=== PATIENT | female | born 1935 | race Caucasian/White ===

== ENCOUNTER 2020-03-01 16:26 | Inpatient (IN) | payer MEDICARE ==
[2020-03-01] MEDS ORDERED: Electrolyte Replacement Protoc 1 EACH EACH IVPB PRN (19:56)
[2020-03-01] MEDS ORDERED: Ondansetron PF 4 MG/2 ML Vial IVP PRN (19:56)
[2020-03-01] MEDS ORDERED: niCARdipine 25 MG in Sodium Chloride 0.9% 250 ML 250 ML IVPB PRN (19:56)
[2020-03-01] MEDS ORDERED: Mannitol 12.5 GM/50 ML SLOW IVP PRN (19:56)
[2020-03-01] MEDS ORDERED: Lorazepam 2 MG/ML VIAL SLOW IVP PRN (19:56)
[2020-03-01] MEDS ORDERED: Sodium Chloride 0.9% 1,000 ML IV SCH ×2 (20:00→20:30)
[2020-03-01] MEDS: niCARdipine 25 MG in Sodium Chloride 0.9% 250 ML 240 ML IVPB SCH (20:30)
[2020-03-01] MEDS: Famotidine/PF 20 mg/2ml Vial SLOW IVP SCH (20:45)
[2020-03-01] MEDS ORDERED: MANNITOL 20% IVPB PRN (20:46)
[2020-03-01] MEDS ORDERED: levETIRAcetam in NS 500 MG in Premix Bag 1 BAG IVPB SCH (21:00)
[2020-03-01] MEDS ORDERED: levETIRAcetam 500 MG in Sodium Chloride 0.9% 100 ML IVPB SCH (21:00)
--- NOTE | 2020-03-01 22:14 | PDOC.HHP ---
Hospitalist HPI - History of Present Illness Altered mental status History of Present Illness: 84-year-old woman with a history of coronary artery disease and hypertension on Eliquis for unclear reason was sent to [facility] due to altered mental status. Patient is reported to have had a seizure at home. She is reported to have fallen during the seizure episode. she had a negative seizure episode in the emergency department for which she was given Keppra and IV Ativan. CT head done in the emergency department demonstrated subdural, subarachnoid and possible parenchymal hemorrhage in the left frontal area of the brain. Neurosurgery was contacted, patient was given a dose of IV dexamethasone and transferred here for further management. She was also given IV Keppra, IV Zosyn, Kcentra to reverse the Eliquis and nicardipine drip in the emergency department. She was seen and evaluated in the CCU. She was unresponsive during my examination, noted right-sided weakness. No family member present to provide any history. History was taken from the ED chart. Her systolic blood pressure noted to be high between 160-180. Hospitalist ROS - Review of Systems ROS unobtainable: due to mental status - Medication Medications: Active Medications Generic Name Dose Route Start Last Admin Trade Name Freq PRN Reason Stop Dose Admin Famotidine 20 mg 03/01/20 21:00 03/01/20 20:45 Famotidine/Pf 20 Mg/2ml Vial SLOW IVP 20 mg 2100 CHRISTIANNE Administration Sodium Chloride 1,000 mls @ 75 mls/hr 03/01/20 20:00 03/01/20 20:44 Normal Saline 0.9% IV 1,000 mls INF CHRISTIANNE Administration Nicardipine HCl 25 mg/ Sodium 250 mls @ 0 mls/hr 03/01/20 20:00 03/01/20 20:30 Chloride IVPB 250 mls INF CHRISTIANNE Administration Protocol Titrate Sodium Chloride 10 ml 03/01/20 19:56 03/01/20 20:45 Flush - Normal Saline 10 Ml Syringe IVF 10 ml PRN PRN Administration Saline Flush Hospitalist History - Past Medical History Cardiac: reports: CAD, HTN Other Medical History: Unable to obtain full history due to altered mental status. - Past Surgical History Other Surgical History: Unable to obtain. - Family History Other Family History: Unable to obtain due to altered mental status. - Social History Smoking Status: Never smoker Alcohol: reports: None Living Situation: With Family - Exam General - other findings: Unresponsive Eye - other findings: Right pupil dilated compared to the left. Pupils reactive to light. Neck: supple, no JVD Heart: RRR (Tachycardic), no murmur, no gallops Respiratory: CTAB, no wheezes, no rales Gastrointestinal: soft, non-distended, normal bowel sounds Extremities: no cyanosis, no edema Skin: normal turgor, no rashes Neurological: facial droop (Right facial droop. Right-sided weakness. She withdraws the left extremities to pain and localizes touch with the left extremities.) Psychiatric - other findings: Unresponsive. Hospitalist Results - Labs Lab results: WBC 10.4, hemoglobin 15.3 platelet count 276. Sodium 140, potassium 4.4, chloride 103, CO2 23, BUN 12, creatinine 0.79. Glucose 155. UA suggest the presence of yeast. - EKG Interpretation EKG: Sinus rhythm with first-degree AV block, nonspecific intraventricular conduction delay. - Radiology Interpretation CT scan - head Status: report reviewed by me (Extra-axial hemorrhage along the left frontal convexity which may be both subdural and sub-arachnoid. Small amount of parenchymal hemorrhage is also a possibility. Slight midline shift to the right. Hypodensity in the left frontal lobe which could represent encephalomalacia or edema.) Hospitalist H&P A/P - Problem (1) Intracranial hemorrhage Code(s): I62.9 - NONTRAUMATIC INTRACRANIAL HEMORRHAGE, UNSPECIFIED Status: Acute (2) ICH (intracerebral hemorrhage) Code(s): I61.9 - NONTRAUMATIC INTRACEREBRAL HEMORRHAGE, UNSPECIFIED Status: Acute (3) Chronic anticoagulation Code(s): Z79.01 - NURSING HOME (CURRENT) USE OF ANTICOAGULANTS Status: Acute (4) Seizures Code(s): R56.9 - UNSPECIFIED CONVULSIONS Status: Acute (5) Malignant hypertension Code(s): I10 - ESSENTIAL (PRIMARY) HYPERTENSION Status: Acute (6) Fall Code(s): W19.XXXA - UNSPECIFIED FALL, INITIAL ENCOUNTER Status: Acute - Plan Plan: Patient admitted to the CCU. Case discussed with neurosurgery-Zak Waller. Patient seen and evaluated by neurosurgery. Status post Kcentra for Eliquis reversal. Started nicardipine drip for target systolic blood pressure less than 140. IV hydration with normal saline. Every 2 hours neurochecks. IV Keppra for seizures. Ativan IV as needed for breakthrough seizures. Obtain echocardiogram. Management of intracerebral bleed, intracranial pressure per neurosurgery. Repeat CT head per neurosurgery. Obtain urine culture. Monitor electrolytes and replete as needed. SCD for DVT prophylaxis. I am unable to discuss advanced care planning due to unresponsiveness and no family member available at her bedside.
[2020-03-02] MEDS ORDERED: Mannitol 12.5 GM/50 ML SLOW IVP SCH (00:30)
[2020-03-02] MEDS: Sodium Chloride 0.9% 1,000 ML IV SCH ×3 (00:36→21:15)
[2020-03-02] MEDS: niCARdipine 25 MG in Sodium Chloride 0.9% 250 ML 240 ML IVPB SCH ×4 (02:20→17:39)
[2020-03-02 05:20] LABS: Bacteria/HPF None Seen HPF (None Seen); Bilirubin Negative (Negative); Blood, Urine Negative (Negative); Clarity Clear (Clear); Glucose, Urine (Dipstick) Normal (Negative); Ketone, Urine Trace mg/dL (Negative); Leukocyte Negative Leu/uL (Negative); Nitrite Negative (Negative); Protein, Urine (Dipstick) Negative (Neg-Trace); RBC/HPF 0-3 HPF (0-3); Specific Gravity, Urine 1.033 (1.002-1.036); Squamous Epithelial None Seen HPF (0-3); Urobilinogen Normal mg/dL (Less than 2); WBC/HPF 0-3 HPF (0-3)
--- NOTE | 2020-03-02 05:26 | CON ---
DATE OF CONSULTATION: HISTORY OF PRESENT ILLNESS: Ms. Amato is an 84-year-old woman, a resident of an assisted living facility who was found down on the floor this morning. She was taken to the [facility] where CT scan reveals she had what appears to be subacute left frontal hemorrhage, likely traumatic in origin given a mix of hemorrhage types, which include subdural, intraparenchymal, and subarachnoid. The patient is on Eliquis. She was transferred to [facility] and was admitted to the hospital service in the ICU. Initially, she was unresponsive. As I am seeing her at bedside, the patient is obtunded, will not open her eyes, but does localize pain inconsistently. She does withdraw very briskly in all extremities except the left upper. She mutters a sound one time, but not again and again at no point does she open her eyes. Her right pupil measures roughly 4 mm, left is 3 mm, both are briskly reactive to light. She is protecting her airway currently. Systolic pressures have been titrated down under 140. Initially, neuroleptic medications were ordered, but we will discontinue these. I do not see any need for ICP management at the moment. From assessment, it is likely traumatic, multi-origin intracerebral hemorrhage including traumatic subarachnoid and small subdural. The patient did receive hemostatic agents in the form for Kcentra and vitamin K while in the ED at [place]. There is no need to administer any more. We will repeat CT scan tonight around 10 to stay abreast of the evolution of this hemorrhage as it relates to her anticoagulation status. I feel that this could represent stable hemorrhage. Given location and current condition of the patient's neurologic examination, we will monitor closely. She will require q.1 h. neuro checks, head of bed elevated as previously discussed. We will follow up in the morning. Job ID: [id number]
--- NOTE | 2020-03-02 07:44 | CT ---
CT OF BRAI PERFORMED WITHOUT CONTRAST ENHANCEMENT: HISTORY: Followup intracranial hemorrhage. COMPARISON: Earlier exam of the same day. FINDINGS: There is a definite worsening in the left frontal intraparenchymal hemorrhage now measuring greater t ramos 5 cm in diameter as compared to approximately 3.5 cm. More extensive subdural blood is present a nd subarachnoid blood is also seen. The subdural blood extends over the left frontal convexity. The re is subfalcine herniation. Shift of midline structures is now approximately 6 mm. Subarachnoid bl ood is now seen over the right sylvian fissure region. Associated white matter edema changes are als o present. IMPRESSION: Worsening intraparenchymal subdural and subarachnoid blood. Worsening shift of midline structures to the right. Findings telephoned to Nita Jacinto, the patient's nurse. CODE CR POS: HALEY
--- NOTE | 2020-03-02 07:47 | PRG ---
DATE OF SERVICE: 03/02/2020 I reviewed the note and evaluation is performed by Isiah Waller and agreed with his overall assessment. SUBJECTIVE: Ms. Amato is an 84-year-old female, who is a resident of an assisted living facility, who was found down. She presented to [facility], where she underwent initial evaluation in way of a CT scan, which showed evidence for what appeared to be traumatic subarachnoid hemorrhage and a left frontal contusion. Of note, she was on Eliquis. She was transferred to [facility] and she has had subsequent scan since that time, which showed worsening of her hemorrhage with associated significant mass effect involving the left frontal hemisphere. The plan from a neurosurgical perspective will be one of nonoperative management. We will continue to withhold her Eliquis and manage her blood pressures appropriately. We will judiciously use osmotic agents as needed for maximal medical management. I have updated the family. Job ID: [id number] MTDD
[2020-03-02 08:53] LABS: #Lymphocytes 0.7 thou/uL (1.20-3.40); #Monocytes 0.6 thou/uL (0.11-0.59); #Neutrophils 9.5 thou/uL (1.40-6.50); %Basophils 0.1 % (0.0-1.0); %Lymphocytes 6.4 % (21.0-51.0); %Monocytes 5.9 % (0.0-10.0); %Neutrophils 87.6 % (42.0-75.0); Hemoglobin 12.4 g/dL (12.0-16.0); Mean Corpuscular Hemoglobin 32.4 pg (27.0-31.0); Mean Corpuscular Volume 95.4 fL (78.0-98.0); Mean Platelet Volume 7.6 fL (7.4-10.4); Platelet Count 202 thou/uL (130-400); RBC Distribution Width 11.7 % (11.5-14.5); Red Blood Cell (RBC) Count 3.83 mill/uL (4.20-5.40); White Blood Cell (WBC) Count 10.9 thou/uL (4.8-10.8)
[2020-03-02 09:14] LABS: Anion Gap 9 mmol/L (10-20); BUN (Urea Nitrogen) 11 mg/dL (9.8-20.1); Calc. Creatinine Clearance 66 mL/min (70-130); Calcium 8.7 mg/dL (7.8-10.44); Carbon Dioxide 24 mmol/L (23-31); Chloride 106 mmol/L (98-107); Cholesterol 169 mg/dl (< 200 Desired); Estimated GFR-MDRD 85; Glucose 162 mg/dL (83-110); HDL Cholesterol 56 mg/dL (>60 Neg Risk); LDL Cholesterol, Calculated 102 mg/dL; Potassium 3.6 mmol/L (3.5-5.1); Sodium 135 mmol/L (136-145); Triglycerides 57 mg/dL (Less than 150)
--- NOTE | 2020-03-02 11:09 | PDOC.FMACP ---
Advance Care Planning - Problem (1) Palliative care encounter Status: Acute Code(s): Z51.5 - ENCOUNTER FOR PALLIATIVE CARE (2) Chronic anticoagulation Status: Acute Code(s): Z79.01 - MEDICAL DOCTOR MD (CURRENT) USE OF ANTICOAGULANTS (3) Fall Status: Acute Code(s): W19.XXXA - UNSPECIFIED FALL, INITIAL ENCOUNTER (4) ICH (intracerebral hemorrhage) Status: Acute Code(s): I61.9 - NONTRAUMATIC INTRACEREBRAL HEMORRHAGE, UNSPECIFIED (5) Intracranial hemorrhage Status: Acute Code(s): I62.9 - NONTRAUMATIC INTRACRANIAL HEMORRHAGE, UNSPECIFIED (6) Malignant hypertension Status: Acute Code(s): I10 - ESSENTIAL (PRIMARY) HYPERTENSION (7) Seizures Status: Acute Code(s): R56.9 - UNSPECIFIED CONVULSIONS - Note Participants: family, palliative care Summary: Introduced Advanced Care Planning to Mr Amato as Mrs Amato is not decisional. The diagnosis, prognosis and goals of care were discussed. Appropriate forms and documentation to accomplish the goals of care were discussed. Discussed poor prognosis and transition to DNAR. Mr Amato states they have two sons that reside in [place], one is on his way. He requested that discussion and completion of DNAR occur if possible after his son arrives. Discussed that although in the past Mrs Amato had a head injury/bleed and she did recover that this instance is very different. Revisited poor prognosis and continued decline since admission. The Palliative Care Team will be engaged to assist with completion of any outstanding forms that are needed. *Patient and spouse have been 63 years, met on the [employer] [place] [employer] when he was a student. Mr Amato relayed best "thing" about her is that she was a wonderful mother. Bernice Lopez educational interpreter to follow up and revisit Goal of Care and DNAR with patient and son. Time Spent (mins): 45
[2020-03-02] MEDS: levETIRAcetam in NS 500 MG in Premix Bag 1 BAG IVPB SCH (12:33)
[2020-03-02] MEDS: Metoprolol Tartrate 5 MG/5 ML VIAL IVP SCH ×3 (12:44→21:06)
--- NOTE | 2020-03-02 12:53 | CON ---
NEUROLOGY CONSULTATION DATE OF CONSULTATION: 03/02/2020 REASON FOR CONSULTATION: Altered mental status/intraparenchymal hemorrhage. HISTORY OF PRESENT ILLNESS: Ms. Amato is an 84-year-old female with history significant for coronary artery disease and hypertension, on Eliquis, presented to the [facility] with altered mental status. The patient is unable to provide the history, so history is obtained by review of the medical record. Per report, the patient had a seizure at home and she fell during the seizure episode. She was given Keppra in the emergency room and Ativan and head CT was done, which showed subdural, subarachnoid, and possible parenchymal hemorrhage in the left frontal area of the brain. Neurosurgery was contacted and the patient was given a dose of IV dexamethasone and transferred to [facility] for higher level of care. She was given Kcentra to reverse Eliquis and nicardipine drip was started in the emergency room. She was evaluated by the Neurosurgery and repeat head CT was done, which showed worsening of the hemorrhage with associated significant mass effect involving the left frontal hemisphere. Neurosurgery did not feel the need of surgical intervention and prognosis seems guarded at this point because of findings on imaging showed worsening midline shift. REVIEW OF SYSTEMS: Unobtainable due to patient mental status. PAST MEDICAL HISTORY: Hypertension, coronary artery disease. PAST SURGICAL HISTORY: Not significant. FAMILY HISTORY: Unable to obtain secondary to mental status. SOCIAL HISTORY: There is no documented history of smoking, alcohol, illegal drug use. , lives with her . ALLERGIES: NKDA PHYSICAL EXAMINATION: 134/60 88 18 GENERAL: Unresponsive. CVS: Regular rate and rhythm. CHEST: Clear. ABDOMEN: Soft. NECK: Supple. NEUROLOGIC: Mental status, the patient is unresponsive. She does not open eyes to verbal stimuli. She does not follow commands or maintain eye contact. Cranial nerves; right pupil 4 mm reactive to light. Left pupil 2 mm, round and sluggishly responsive to light. Corneals positive. Right facial droop. Motor; muscle tone is decreased in the right upper and lower extremity. Right hemiparesis. Spontaneous movement of the left upper and lower extremities seen. Withdrawals, minimal withdrawal of right upper and lower extremity. Withdrawals, left upper and lower extremities to pain. Cerebellar, unable to perform secondary to unresponsiveness. Gait deferred due to patient's safety reason. Active Medications Generic Name Dose Route Start Last Admin Trade Name Freq PRN Reason Stop Dose Admin Famotidine 20 mg 03/01/20 21:00 03/01/20 20:45 Famotidine/Pf 20 Mg/2ml Vial SLOW IVP 20 mg 2100 CHRISTIANNE Administration Sodium Chloride 1,000 mls @ 75 mls/hr 03/01/20 20:00 03/01/20 20:44 Normal Saline 0.9% IV 1,000 mls INF CHRISTIANNE Administration Nicardipine HCl 25 mg/ Sodium 250 mls @ 0 mls/hr 03/01/20 20:00 03/01/20 20:30 Chloride IVPB 250 mls INF CHRISTIANNE Administration Protocol Titrate Sodium Chloride 10 ml 03/01/20 19:56 03/01/20 20:45 Flush - Normal Saline 10 Ml Syringe IVF 10 ml PRN PRN Administration Saline Flush DATA REVIEWED: I reviewed the CT scan which showed extra-axial hemorrhage along the left frontal convexity, which may include both subdural and subarachnoid, small amount of parenchymal hemorrhage. There is also a possibility midline shift to the right and hypodensity in the left frontal lobe which could represent encephalomalacia or edema. ASSESSMENT AND PLAN: (1) Intracranial hemorrhage Code(s): I62.9 - NONTRAUMATIC INTRACRANIAL HEMORRHAGE, UNSPECIFIED Status: Acute (2) ICH (intracerebral hemorrhage) Code(s): I61.9 - NONTRAUMATIC INTRACEREBRAL HEMORRHAGE, UNSPECIFIED Status: Acute (3) Chronic anticoagulation Code(s): Z79.01 - [employer] THRESHING (CURRENT) USE OF ANTICOAGULANTS Status: Acute (4) Seizures Code(s): R56.9 - UNSPECIFIED CONVULSIONS Status: Acute (5) Malignant hypertension Code(s): I10 - ESSENTIAL (PRIMARY) HYPERTENSION Status: Acute (6) Fall Code(s): W19.XXXA - UNSPECIFIED FALL, INITIAL ENCOUNTER Status: Acute Ms. Amato is an 84-year-old female, who was consulted for intracranial hemorrhage Neurosurgery is on board and does not feel the need of surgical intervention. Continue Keppra for seizure prophylaxis. Ativan 2 mg IV for seizure greater than 2 minutes. Observe seizure precautions. Neuro checks every 2 hours. Repeat noncontrast head CT if the condition declines. Continue medical management per primary team. EEG to rule out ongoing seizure activity is completed and is negative. Continue home medication. N.p.o. until cleared by Speech. Prognosis of function or meaningful recovery seems guarded at this time. Plan was discussed in detail with the nursing staff and also with the at bedside. Job ID: [id number] MTDD
--- NOTE | 2020-03-02 13:09 | CON ---
DATE OF CONSULTATION: HISTORY OF PRESENT ILLNESS: The patient is an 84-year-old woman, who unfortunately suffered an intracerebral hemorrhage and was noted to have irregular heart rhythm. The patient has apparent history of atrial fibrillation. She is unable to give any coherent history. The patient was on chronic Eliquis. She presented with intracerebral hemorrhage. She is completely disoriented. PAST MEDICAL HISTORY: 1. Coronary artery disease. 2. Hypertension. 3. Seizure disorder. PAST SURGICAL HISTORY: Unobtainable. SOCIAL HISTORY: Unobtainable. PHYSICAL EXAMINATION: GENERAL: Unresponsive woman, whose right eye has pupils dilated. NECK: No jugular venous distention. LUNGS: Clear to auscultation. HEART: Regular rate and rhythm. Normal S1 and S2. No murmurs. ABDOMEN: Nondistended. EXTREMITIES: Showed no edema. LABORATORY RESULTS: White blood cell count 10.9, hemoglobin 12.6, hematocrit 36.5, and platelets are 202. Sodium 135, potassium 3.6, chloride 106, bicarbonate 24, BUN 11, creatinine 0.6, and glucose is 85. Telemetry monitoring a wide-complex tachycardia suggestive of short runs of nonsustained ventricular tachycardia. IMPRESSION: 1. Status post intracerebral hemorrhage. 2. Wide-complex tachycardia suggestive of nonsustained ventricular tachycardia. 3. Hypertension. 4. History of seizure disorder. PLAN: This patient has suffered an intracerebral hemorrhage. She was apparently on chronic anticoagulation therapy. The patient is on IV Cardene for blood pressure control. We will check an echocardiogram to evaluate her left ventricular function. We will try to obtain records from her heat pump installer. We will start the patient on a low-dose of beta-nick therapy. We will follow this patient with you through her hospitalization. Critical care note, 30 minutes. Job ID: [id number] [facility]
--- NOTE | 2020-03-02 18:25 | PDOC.HOSPP ---
- Subjective Encounter Date: 03/02/20 Encounter Time: 09:30 Subjective: The patient is aphasic, she is unable to follow commands. She spontaneously moves her left arm . Spoke with , he wants to continue treatment for now Per nursing, nicardipine drip was increased this morning - Objective Vital Signs & Weight: Vital Signs (12 hours) Temp Pulse Pulse BP BP Pulse Ox Pulse Ox 03/02/20 16:00 98.4 F 03/02/20 14:14 108 H 108 H 143/67 H 142/67 H 100 03/02/20 12:00 97.7 F 03/02/20 08:00 93 L 03/02/20 07:00 98.8 F Pulse Ox 03/02/20 16:00 03/02/20 14:14 99 03/02/20 12:00 03/02/20 08:00 03/02/20 07:00 Weight Admit Weight 149 lb 4 oz Weight 150 lb 5.684 oz Most Recent Monitor Data Heart Rate from ECG 112 NIBP 142/65 NIBP BP-Mean 81 Respiration from ECG 26 SpO2 100 I&O: 03/01/20 03/02/20 03/03/20 06:59 06:59 06:59 Intake Total 1486 1575 Output Total 1625 1300 Balance -139 275 Result Diagrams: 03/02/20 08:30 03/02/20 08:30 Additional Labs: Accuchecks 03/02/20 03/02/20 03/02/20 16:40 07:56 02:24 POC Glucose 135 H 173 H 164 H Hospitalist ROS - Review of Systems Constitutional: denies: fever, chills - Medication Medications: Active Medications Generic Name Dose Route Start Last Admin Trade Name Freq PRN Reason Stop Dose Admin Famotidine 20 mg 03/01/20 21:00 03/01/20 20:45 Famotidine/Pf 20 Mg/2ml Vial SLOW IVP 20 mg 2100 CHRISTIANNE Administration Nicardipine HCl 25 mg/ Sodium 250 mls @ 0 mls/hr 03/01/20 20:00 03/02/20 17:39 Chloride IVPB 250 mls INF CHRISTIANNE Administration Protocol Titrate Sodium Chloride 1,000 mls @ 100 mls/hr 03/02/20 00:23 03/02/20 09:52 Normal Saline 0.9% IV 1,000 mls .Q10H CHRISTIANNE Administration Levetiracetam 500 mg/ Device 100 mls @ 200 mls/hr 03/02/20 12:00 03/02/20 12:33 IVPB 100 mls 0000,1200 CHRISTIANNE Administration Metoprolol Tartrate 2.5 mg 03/02/20 13:00 03/02/20 16:34 Metoprolol Tartrate 5 Mg/5 Ml Vial IVP 2.5 mg QID CHRISTIANNE Administration Sodium Chloride 10 ml 03/01/20 19:56 03/01/20 20:45 Flush - Normal Saline 10 Ml Syringe IVF 10 ml PRN PRN Administration Saline Flush - Exam General Appearance: NAD, awake alert General - other findings: confused, aphasic Eye: PERRL, anicteric sclera Eye - other findings: pupils unequal, but reactive ENT: normocephalic atraumatic, no oropharyngeal lesions Neck: no JVD Heart: RRR, no murmur, no gallops, no rubs Respiratory: CTAB, no wheezes, no rales, no ronchi Gastrointestinal: soft, non-tender, non-distended, normal bowel sounds Extremities: no cyanosis, no clubbing, no edema Skin: normal turgor, no lesions, no rashes Neurological - other findings: spontaneously moves her left arm. Weak on right arm. Withdraws legs to pain Musculoskeletal: normal tone, normal strength, no muscle wasting Hosp A/P - Plan CT brain: worsening intraparenchymal subdural and subarachnoid blood. Worsening midline shift to the right This is an 84 year old female who presented with subdural and subarachnoid hemorrhage Subarachnoid and subdural hemorrhage - noted oN CT scan with midline shift. She was given mannitol x 1 - per neurosurgery no intervention - she is on nicardipine drip - appreciate neurosurgery recs Seizure - continue keppra Hypertensive emergency - on nicardipine drip. BP goal < 140 On oral anticoagulation -on eliquis as outpatient for unclear reason. Currently holding Leukocytosis - WBC 10.9. UA negative. Obtain chest X ray
--- NOTE | 2020-03-02 20:39 | CON ---
DATE OF CONSULTATION: 03/02/2020 HISTORY OF PRESENT ILLNESS: Zuleyka Amato is an 84-year-old female. She apparently fell and hit her head and had a contrecoup brain bleed. She also has subarachnoid and subdural blood. Neurosurgery was not recommend any surgical intervention. Her is at the bedside. PAST MEDICAL HISTORY: Remarkable for, 1. Atrial fibrillation leading to chronic anticoagulation. 2. History of coronary artery disease. 3. History of hypertension. 4. History of reported seizures. 5. History of wide-complex tachycardia. FAMILY HISTORY: Noncontributory. SOCIAL HISTORY: She is a nonsmoker and nondrinker. PHYSICAL EXAMINATION: VITAL SIGNS: She is afebrile, heart rate 107, blood pressure 149/65, respiratory rate is in the 30s. GENERAL: She is spontaneously moving the right side. She does not spontaneously open her eyes. She is not following commands. She is not having any issues with airway protection. NECK: Without lymphadenopathy. LUNGS: Clear. HEART: Regular rhythm. ABDOMEN: Soft and nontender. EXTREMITIES: Without asymmetry or edema. IMPRESSION: Brain hemorrhage, stable at this time from airway protection standpoint. Her prognosis is quite guarded. Apparently, this has happened before with a fall and a bleed, but she recovered from that after a prolonged period of therapy according to her . I answered all of his questions at the bedside. We will be available for supportive care, but from a Pulmonary standpoint, there is no need for airway protection or intervention at this point in time in this 84 years of age. I have encouraged the not to request that she be intubated or resuscitated. She wants to wait till his son gets here from [place] to make these decisions. This is a 70 min visit with greater than 50% spent on unit with coordination of care. Job ID: [id number] [facility]
--- NOTE | 2020-03-02 20:48 | RAD ---
CHEST ONE VIEW: 03/02/20 HISTORY: Elevated white count. COMPARISON: 03/01/20 exam. Heart size is enlarged with atherosclerotic changes of the aorta. There are chronic appearing lung ch anges seen. Linear change in the right base appears to represent scar and/or atelectasis. Retrocardia c region is difficult to assess. No definitive change since the prior exam given the supine technique . IMPRESSION: Essentially stable exam. POS: HALEY
[2020-03-02] MEDS: Famotidine/PF 20 mg/2ml Vial SLOW IVP SCH (21:04)
[2020-03-03] MEDS: levETIRAcetam in NS 500 MG in Premix Bag 1 BAG IVPB SCH ×3 (00:12→23:43)
[2020-03-03] MEDS: niCARdipine 25 MG in Sodium Chloride 0.9% 250 ML 240 ML IVPB SCH (00:14)
[2020-03-03 04:00] LABS: Hemoglobin 13.7 g/dL (12.0-16.0); Mean Corpuscular HGB CONC 34.5 g/dL (32.0-36.0); Mean Corpuscular Hemoglobin 32.3 pg (27.0-31.0); Mean Corpuscular Volume 93.7 fL (78.0-98.0); Mean Platelet Volume 7.7 fL (7.4-10.4); Platelet Count 226 thou/uL (130-400); RBC Distribution Width 11.7 % (11.5-14.5); Red Blood Cell (RBC) Count 4.23 mill/uL (4.20-5.40); White Blood Cell (WBC) Count 15.2 thou/uL (4.8-10.8)
[2020-03-03] MEDS ORDERED: Amiodarone 150 MG, Admixture Fee 1 EACH in Dextrose 5% in Water 100 ML IVPB SCH (04:30)
[2020-03-03] MEDS: Amiodarone 450 MG, Admixture Fee 1 EACH in Dextrose 5% in Water 250 ML IVPB SCH ×2 (04:39→15:39)
[2020-03-03 05:00] LABS: Anion Gap 13 mmol/L (10-20); BUN (Urea Nitrogen) 9 mg/dL (9.8-20.1); Calc. Creatinine Clearance 76 mL/min (70-130); Carbon Dioxide 21 mmol/L (23-31); Chloride 104 mmol/L (98-107); Estimated GFR-MDRD Greater than 90; Glucose 132 mg/dL (83-110); Potassium 3.6 mmol/L (3.5-5.1); Sodium 134 mmol/L (136-145)
[2020-03-03] MEDS: Sodium Chloride 0.9% 1,000 ML IV SCH ×2 (08:21→15:24)
[2020-03-03] MEDS: Metoprolol Tartrate 5 MG/5 ML VIAL IVP SCH ×4 (08:33→20:02)
--- NOTE | 2020-03-03 08:39 | PRG ---
DATE OF SERVICE: 03/03/2020 Ms. Amato is on the third day of her hospital stay for large left hemispheric hemorrhage in the setting of Eliquis anticoagulation. Her neurologic status has remained stable. She is minimally responsive, but moves the left upper extremity spontaneously throughout the day. She quickly withdraws with the bilateral lower extremities, but not the bilateral upper extremities. She does not localize to pain. She does not open her eyes. Right pupil remains somewhat larger than the left, but both are reactive. She continues to maintain and protect her own airway. Systolic pressures have crept up some into the 160s. We would like to still see this little lower than that. Family has been updated by the Critical Care team as well with regard to recommendations against intubation and trending towards comfort care measures at this time given the size and location of this hemorrhage. The patient's prognosis is quite poor. Sons and plan to have a family conference later today according to nursing staff. We will continue to follow along. Job ID: [id number]
--- NOTE | 2020-03-03 11:29 | EEG ---
DATE OF SERVICE: 03/02/2020 ATTENDING PHYSICIAN: Alicia Underwood MD This EEG was performed using 24-channel [employer] video digital EEG machine with 24-disk electrodes. This was an extended 2 hours 11 minutes of inpatient video EEG recording. Digital analysis of the EEG was done for spike and seizure detection, which revealed no abnormalities. BACKGROUND: The posterior background rhythm was not observed. HYPERVENTILATION: Not performed. PHOTIC STIMULATION: No significant response seen with photic stimulation. SLEEP: No stage change was observed. EEG DIAGNOSES: 1. Low amplitude theta activity seen in the left cerebral hemisphere. 2. Generalized irregular theta activity seen throughout the recording. 3. Occasional sharp waves seen throughout the recording. 4. Absence of posterior background rhythm. CLINICAL INTERPRETATION: This EEG is consistent with interictal expression of partial epilepsy in the setting of moderate generalized nonspecific cerebral dysfunction. No electrographic seizures captured during the recording. Job ID: [id number]
--- NOTE | 2020-03-03 12:43 | PRG ---
DATE OF SERVICE: 03/03/2020 SUBJECTIVE: Zuleyka Amato is clinically unchanged. OBJECTIVE: VITAL SIGNS: She is afebrile. Heart rate 66, blood pressure 134/66, respiratory rate is 22. LUNGS: Clear. HEART: Regular rhythm. ABDOMEN: Soft. EXTREMITIES: Without edema. She is protecting her airway at this time. LABORATORY DATA: White count 15.2, hemoglobin 13.7, platelets 226. Sodium 134, potassium 3.6, chloride 104, bicarb 21, BUN 9, creatinine 0.5. IMPRESSION: Status post parenchymal brain hemorrhage after a fall with poor functional status. Her is at the bedside said she would never want to be intubated. I have asked him to make a decision that is firm regarding this. He wants to wait on his sons. We will continue to follow, although there are no acute care issues from a pulmonary standpoint. Job ID: [id number]
--- NOTE | 2020-03-03 18:10 | PDOC.HOSPP ---
- Subjective Encounter Date: 03/03/20 Encounter Time: 09:00 Subjective: The patient has become more obtunded. She does not open her eyes or follow commands. SPoke with the , he is leaning towards no aggressive care. He wanted me to speak with the son who is driving from [place]. Son wants to continue treatment for a few days until he gets here. He also requested to speak to the neurosurgeon Nursing had to put a midline in right arm due to her losing IV access. She was started on amiodarone drip due to going into afib overnight. - Objective Vital Signs & Weight: Vital Signs (12 hours) Temp Pulse Pulse BP BP Pulse Ox Pulse Ox 03/03/20 15:59 98.7 F 03/03/20 11:48 98.2 F 03/03/20 11:39 100 03/03/20 09:45 77 66 155/60 H 145/53 H 100 03/03/20 07:10 97 03/03/20 07:00 98.5 F Pulse Ox 03/03/20 15:59 03/03/20 11:48 03/03/20 11:39 03/03/20 09:45 98 03/03/20 07:10 03/03/20 07:00 Weight Admit Weight 149 lb 4 oz Weight 155 lb 6.814 oz Most Recent Monitor Data Heart Rate from ECG 71 NIBP 146/48 NIBP BP-Mean 89 Respiration from ECG 32 SpO2 100 I&O: 03/02/20 03/03/20 03/04/20 06:59 06:59 06:59 Intake Total 1486 2861 1853 Output Total 1625 2470 600 Balance -036 642 8545 Result Diagrams: 03/03/20 03:36 03/03/20 03:36 Additional Labs: Accuchecks 03/03/20 03/03/20 03/03/20 15:54 10:17 04:38 POC Glucose 145 H 147 H 125 H 03/02/20 20:55 POC Glucose 149 H Hospitalist ROS - Review of Systems ROS unobtainable: due to mental status - Medication Medications: Active Medications Generic Name Dose Route Start Last Admin Trade Name Freq PRN Reason Stop Dose Admin Sodium Chloride 1,000 mls @ 100 mls/hr 03/02/20 00:23 03/03/20 15:24 Normal Saline 0.9% IV 1,000 mls .Q10H CHRISTIANNE Administration Levetiracetam 500 mg/ Device 100 mls @ 200 mls/hr 03/02/20 12:00 03/03/20 11:34 IVPB 100 mls 0000,1200 CHRISTIANNE Administration Amiodarone HCl 450 mg/ 259 mls @ 0 mls/hr 03/03/20 04:30 03/03/20 15:39 Miscellaneous Medication 1 IVPB 259 mls each/ Dextrose/Water INF CHRISTIANNE Administration Protocol As Directed Metoprolol Tartrate 2.5 mg 03/02/20 13:00 03/03/20 16:32 Metoprolol Tartrate 5 Mg/5 Ml Vial IVP 2.5 mg QID CHRISTIANNE Administration Sodium Chloride 10 ml 03/01/20 19:56 03/01/20 20:45 Flush - Normal Saline 10 Ml Syringe IVF 10 ml PRN PRN Administration Saline Flush - Exam General - other findings: obtunded, does not awaken to sternal rub Eye - other findings: unequal pupils, not reactive ENT: normocephalic atraumatic, no oropharyngeal lesions Neck: no JVD Heart: RRR, no murmur, no gallops, no rubs Respiratory: CTAB, no wheezes, no rales, no ronchi Gastrointestinal: soft, non-tender, non-distended, normal bowel sounds Extremities: no cyanosis, no clubbing, no edema Skin: normal turgor, no rashes Neurological - other findings: spontaneously moves left arm per nursing. Musculoskeletal - other findings: Did not move any extremities for me Psychiatric: lethargic Hosp A/P - Plan CT brain: worsening intraparenchymal subdural and subarachnoid blood. Worsening midline shift to the right Chest Xray: atelectasis This is an 84 year old female who presented with subdural and subarachnoid hemorrhage Subarachnoid and subdural hemorrhage - noted oN CT scan with midline shift. She was given mannitol x 1 - per neurosurgery no intervention - she is on nicardipine drip. Neurosurgery will speak with son Roni regarding questions about treatment Seizure - continue keppra Hypertensive emergency - continue on nicardipine drip Atrial fibrillation - continue amiodarone drip On oral anticoagulation -on eliquis as outpatient for unclear reason. Currently holding Leukocytosis - went up to 15.9, likely stress response from brain bleed - . UA negative. Chest Xray showed atelectasis.
[2020-03-03] MEDS: Famotidine/PF 20 mg/2ml Vial SLOW IVP SCH (20:03)
[2020-03-04] MEDS: Sodium Chloride 0.9% 1,000 ML IV SCH ×2 (01:29→12:47)
[2020-03-04 03:53] LABS: Hemoglobin 12.3 g/dL (12.0-16.0); Mean Corpuscular Hemoglobin 32.3 pg (27.0-31.0); Mean Corpuscular Volume 92.3 fL (78.0-98.0); Mean Platelet Volume 7.4 fL (7.4-10.4); Platelet Count 201 thou/uL (130-400); RBC Distribution Width 11.3 % (11.5-14.5); White Blood Cell (WBC) Count 10.3 thou/uL (4.8-10.8)
[2020-03-04 04:17] LABS: Anion Gap 12 mmol/L (10-20); BUN (Urea Nitrogen) 8 mg/dL (9.8-20.1); Calc. Creatinine Clearance 88 mL/min (70-130); Calcium 8.2 mg/dL (7.8-10.44); Carbon Dioxide 23 mmol/L (23-31); Chloride 102 mmol/L (98-107); Estimated GFR-MDRD Greater than 90; Glucose 121 mg/dL (83-110); Potassium 3.1 mmol/L (3.5-5.1); Sodium 134 mmol/L (136-145)
[2020-03-04] MEDS: Amiodarone 450 MG, Admixture Fee 1 EACH in Dextrose 5% in Water 250 ML IVPB SCH ×2 (05:58→23:48)
[2020-03-04] MEDS: Metoprolol Tartrate 5 MG/5 ML VIAL IVP SCH ×4 (08:48→21:34)
[2020-03-04] MEDS: Famotidine/PF 20 mg/2ml Vial SLOW IVP SCH ×2 (08:49→21:34)
[2020-03-04] MEDS ORDERED: Potassium Chloride 20 MEQ TAB PO SCH (09:00)
[2020-03-04] MEDS: levETIRAcetam in NS 500 MG in Premix Bag 1 BAG IVPB SCH (11:39)
[2020-03-04] MEDS ORDERED: Potassium Chloride 40 MEQ in Sodium Chloride 0.9% 250 ML 250 ML IVPB SCH (11:45)
--- NOTE | 2020-03-04 16:07 | PRG ---
DATE OF SERVICE: 03/04/2020 SUBJECTIVE: Ms. Amato is clinically unchanged. OBJECTIVE: VITAL SIGNS: Heart rates in the 90s, blood pressure 136/73, respiratory rates in the 20s. She is still protecting her airway. LUNGS: Clear. HEART: Regular rhythm. ABDOMEN: Soft. ASSESSMENT AND PLAN: Son still have not arrived. Decisions have not been made about resuscitation status. She is stable at this point in time. She will transfer out of the Critical Care Unit. We will sign off. Job ID: [id number]
--- NOTE | 2020-03-04 19:05 | PDOC.HOSPP ---
- Subjective Encounter Date: 03/04/20 Encounter Time: 11:00 Subjective: The patient is still obtunded. Per nursing staff, patient has been urinating adequately about 100 mL/h. She is currently on normal saline at 100 an hour. She does not spontaneously move her left arm for me but she did per nursing staff. She has been weaned off nicardipine drip Patient still on amiodarone drip at 0.5 - Objective Vital Signs & Weight: Vital Signs (12 hours) Temp Pulse Pulse BP BP Pulse Ox Pulse Ox 03/04/20 12:00 97.9 F 03/04/20 11:40 95 100 133/72 153/76 H 100 03/04/20 08:00 98 F 100 Pulse Ox 03/04/20 12:00 03/04/20 11:40 99 03/04/20 08:00 Weight Admit Weight 149 lb 4 oz Weight 159 lb 13.362 oz Most Recent Monitor Data Heart Rate from ECG 121 NIBP 136/73 NIBP BP-Mean 101 Respiration from ECG 23 SpO2 100 I&O: 03/03/20 03/04/20 03/05/20 06:59 06:59 06:59 Intake Total 2861 3277 1193 Output Total 2470 1165 1480 Balance 391 2112 -287 Result Diagrams: 03/04/20 03:33 03/04/20 03:33 Additional Labs: Accuchecks 03/04/20 03/03/20 17:22 22:50 POC Glucose 119 H 123 H Hospitalist ROS - Review of Systems ROS unobtainable: due to mental status - Medication Medications: Active Medications Generic Name Dose Route Start Last Admin Trade Name Wolf PRN Reason Stop Dose Admin Famotidine 20 mg 03/03/20 21:00 03/04/20 08:49 Famotidine/Pf 20 Mg/2ml Vial SLOW IVP 20 mg BID CHRISTIANNE Administration Sodium Chloride 1,000 mls @ 50 mls/hr 03/02/20 00:23 03/04/20 12:47 Normal Saline 0.9% IV 1,000 mls .Q20H CHRISTIANNE Administration Levetiracetam 500 mg/ Device 100 mls @ 200 mls/hr 03/02/20 12:00 03/04/20 11:39 IVPB 100 mls 0000,1200 CHRISTIANNE Administration Amiodarone HCl 450 mg/ 259 mls @ 0 mls/hr 03/03/20 04:30 03/04/20 05:58 Miscellaneous Medication 1 IVPB 259 mls each/ Dextrose/Water INF CHRISTIANNE Administration Protocol As Directed Metoprolol Tartrate 2.5 mg 03/02/20 13:00 03/04/20 18:28 Metoprolol Tartrate 5 Mg/5 Ml Vial IVP 2.5 mg QID CHRISTIANNE Administration Sodium Chloride 10 ml 03/01/20 19:56 03/01/20 20:45 Flush - Normal Saline 10 Ml Syringe IVF 10 ml PRN PRN Administration Saline Flush - Exam General - other findings: Lethargic Eye: PERRL, anicteric sclera ENT: normocephalic atraumatic, no oropharyngeal lesions Neck: no JVD Heart: RRR, no murmur, no gallops, no rubs, murmur present Respiratory: CTAB, no wheezes, no rales, no ronchi Gastrointestinal: soft, non-tender, non-distended, normal bowel sounds Extremities: no cyanosis, no clubbing, no edema Skin: normal turgor, no lesions, no rashes Neurological: cranial nerve grossly intact, normal sensation to touch, no weakness Neurological - other findings: Withdraws left arm, right leg and left leg to pain. Does not move the righ Musculoskeletal: normal tone, normal strength, no muscle wasting Psychiatric: lethargic Hosp A/P - Plan CT brain: worsening intraparenchymal subdural and subarachnoid blood. Worsening midline shift to the right Chest Xray: atelectasis This is an 84 year old female who presented with subdural and subarachnoid hemorrhage Subarachnoid and subdural hemorrhage - noted oN CT scan with midline shift. She was given mannitol x 1 - per neurosurgery no intervention - was leaning more towards comfort measures yesterday. However awaiting for the son to arrive for final decisions. - Patient will be transferred to the stroke floor Seizure - continue keppra Hypertensive emergency -Patient is off nicardipine drip Atrial fibrillation - continue amiodarone drip On oral anticoagulation -on eliquis as outpatient for unclear reason. Currently holding Leukocytosis -White blood cell count improved to 10.9 - . UA negative. Chest Xray showed atelectasis. Hypokalemia -Potassium 3.1. Replaced with 40 mg oral potassium Disposition: pending family meeting
[2020-03-05] MEDS: levETIRAcetam in NS 500 MG in Premix Bag 1 BAG IVPB SCH ×2 (01:11→11:40)
[2020-03-05] MEDS ORDERED: hydrALAZINE 20 MG/ML VIAL SLOW IVP PRN (02:31)
[2020-03-05] MEDS: Labetalol HCl 100 MG/20 ML VIAL SLOW IVP PRN ×3 (02:43→23:08)
[2020-03-05] MEDS: Sodium Chloride 0.9% 1,000 ML IV SCH (02:49)
[2020-03-05 05:06] LABS: Hemoglobin 13.5 g/dL (12.0-16.0); Mean Corpuscular HGB CONC 35.1 g/dL (32.0-36.0); Mean Corpuscular Hemoglobin 32.6 pg (27.0-31.0); Mean Corpuscular Volume 92.8 fL (78.0-98.0); Mean Platelet Volume 7.3 fL (7.4-10.4); Platelet Count 201 thou/uL (130-400); RBC Distribution Width 11.5 % (11.5-14.5); Red Blood Cell (RBC) Count 4.15 mill/uL (4.20-5.40); White Blood Cell (WBC) Count 9.6 thou/uL (4.8-10.8)
[2020-03-05 05:23] LABS: Anion Gap 16 mmol/L (10-20); BUN (Urea Nitrogen) 10 mg/dL (9.8-20.1); Calc. Creatinine Clearance 84 mL/min (70-130); Calcium 8.7 mg/dL (7.8-10.44); Carbon Dioxide 17 mmol/L (23-31); Chloride 105 mmol/L (98-107); Estimated GFR-MDRD Greater than 90; Glucose 122 mg/dL (83-110); Potassium 4.2 mmol/L (3.5-5.1); Sodium 134 mmol/L (136-145)
[2020-03-05] MEDS: Famotidine/PF 20 mg/2ml Vial SLOW IVP SCH ×2 (09:21→20:40)
[2020-03-05] MEDS: Metoprolol Tartrate 5 MG/5 ML VIAL IVP SCH ×4 (09:30→20:40)
--- NOTE | 2020-03-05 10:29 | PDOC.HOSPP ---
- Subjective Encounter Date: 03/05/20 Encounter Time: 10:05 Subjective: f/u for L frontal/hemispheric SAH/SDH on prior Eliquis. Remains somnolent and minimally responsive over last 4 days. Family at bedside currently and trying to decide course of action. - Objective Vital Signs & Weight: Vital Signs (12 hours) Temp Pulse Resp BP Pulse Ox 03/05/20 07:45 99.6 F 67 22 H 166/64 H 97 03/05/20 04:12 100.2 F H 55 L 20 152/62 H 98 03/05/20 02:43 71 03/05/20 00:04 97 03/05/20 00:00 98.4 F 71 22 H 165/60 H 98 Weight Admit Weight 149 lb 4 oz Weight 159 lb 1.6 oz Most Recent Monitor Data Heart Rate from ECG 121 NIBP 136/73 NIBP BP-Mean 101 Respiration from ECG 23 SpO2 100 I&O: 03/04/20 03/05/20 03/06/20 06:59 06:59 06:59 Intake Total 3277 1897.5 Output Total 1165 2630 Balance 2112 -732.5 Result Diagrams: 03/05/20 04:54 03/05/20 04:54 Additional Labs: Accuchecks 03/05/20 03/05/20 03/04/20 05:54 00:26 17:22 POC Glucose 117 H 126 H 119 H Radiology Reviewed by me: Yes (Echo - EF 60-65%, mild-mod TR) EKG Reviewed by me: Yes (Tele - A-flutter with intermittent SR) Hospitalist ROS - Medication Medications: Active Medications Generic Name Dose Route Start Last Admin Trade Name Freq PRN Reason Stop Dose Admin Famotidine 20 mg 03/03/20 21:00 03/05/20 09:21 Famotidine/Pf 20 Mg/2ml Vial SLOW IVP 20 mg BID CHRISTIANNE Administration Sodium Chloride 1,000 mls @ 50 mls/hr 03/02/20 00:23 03/05/20 02:49 Normal Saline 0.9% IV 1,000 mls .Q20H CHRISTIANNE Administration Levetiracetam 500 mg/ Device 100 mls @ 200 mls/hr 03/02/20 12:00 03/05/20 01:11 IVPB 100 mls 0000,1200 CHRISTIANNE Administration Amiodarone HCl 450 mg/ 259 mls @ 0 mls/hr 03/03/20 04:30 03/04/20 23:48 Miscellaneous Medication 1 IVPB 259 mls each/ Dextrose/Water INF CHRISTIANNE Administration Protocol As Directed Labetalol HCl 10 mg 03/05/20 02:31 03/05/20 02:43 Labetalol Hcl 100 Mg/20 Ml Vial SLOW IVP 10 mg Q4H PRN Administration SBP GREATER THAN 160 Metoprolol Tartrate 2.5 mg 03/02/20 13:00 03/05/20 09:30 Metoprolol Tartrate 5 Mg/5 Ml Vial IVP 2.5 mg QID CHRISTIANNE Administration Sodium Chloride 10 ml 03/01/20 19:56 03/01/20 20:45 Flush - Normal Saline 10 Ml Syringe IVF 10 ml PRN PRN Administration Saline Flush - Exam General - other findings: somnolent, does not open eyes to voice/stimulus Eye: anicteric sclera ENT: normocephalic atraumatic, no oropharyngeal lesions Neck: supple, symmetric, no JVD, no thyromegaly, no lymphadenopathy Heart: no gallops, no rubs, normal peripheral pulses, irregular Heart - other findings: S1, S2 Respiratory: CTAB, no wheezes, no rales, no ronchi, normal chest expansion Gastrointestinal: soft, non-tender, non-distended, normal bowel sounds, no p alpable masses Extremities: no cyanosis, no clubbing, no edema Skin: normal turgor, no lesions Neurological: no new deficit Neurological - other findings: no eye opening, minimal withdrawal to painful stimulus, non-verbal Psychiatric: somnolent, lethargic Hosp A/P (1) ICH (intracerebral hemorrhage) Code(s): I61.9 - NONTRAUMATIC INTRACEREBRAL HEMORRHAGE, UNSPECIFIED Status: Acute Plan: Large L frontal/hemispheric SAH/SDH with midline shift, continue supportive mg mt, no surgical intervention, family considering Palliative options given the severity of the hemorrhage and lack of meaningful clinical improvement (2) Chronic anticoagulation Code(s): Z79.01 - RETENTION REPRESENTATIVE (CURRENT) USE OF ANTICOAGULANTS Status: Acute Plan: D/c all anticoagulation (3) Malignant hypertension Code(s): I10 - ESSENTIAL (PRIMARY) HYPERTENSION Status: Acute Plan: Off Cardene gtt, serial monitoring (4) Seizures Code(s): R56.9 - UNSPECIFIED CONVULSIONS Status: Acute Plan: Continue Keppra (5) Atrial flutter Code(s): I48.92 - UNSPECIFIED ATRIAL FLUTTER Status: Acute Plan: Variable rate on Amiodarone gtt - Plan plan discussed w/ family, social media executive, DVT proph w/SCDs Consults: Palliative Care Continue routine stroke protocol PPN for nutritional support Family contemplating Palliative options Continue Amiodarone gtt Palliative care to assist with coordination of care Updated clinical condition/prognosis with family
[2020-03-05] MEDS: Acetaminophen 650 MG Suppository PR PRN (11:40)
[2020-03-05] MEDS: Amiodarone 450 MG, Admixture Fee 1 EACH in Dextrose 5% in Water 250 ML IVPB SCH (12:13)
[2020-03-05] MEDS ORDERED: D5W-AA 4.25% with LYTES 1,000 ML IV SCH (18:45)
[2020-03-06] MEDS: levETIRAcetam in NS 500 MG in Premix Bag 1 BAG IVPB SCH ×2 (00:03→13:14)
[2020-03-06] MEDS: Sodium Chloride 0.9% 1,000 ML IV SCH (02:45)
[2020-03-06] MEDS: Amiodarone 450 MG, Admixture Fee 1 EACH in Dextrose 5% in Water 250 ML IVPB SCH (02:58)
[2020-03-06] MEDS: Labetalol HCl 100 MG/20 ML VIAL SLOW IVP PRN ×2 (03:34→09:57)
[2020-03-06 05:30] VITALS: BMI 27.8
[2020-03-06] MEDS: Metoprolol Tartrate 5 MG/5 ML VIAL IVP SCH ×3 (08:19→17:16)
[2020-03-06] MEDS: Acetaminophen 650 MG Suppository PR PRN (08:40)
[2020-03-06] MEDS: Famotidine/PF 20 mg/2ml Vial SLOW IVP SCH (08:46)
[2020-03-06 12:11] VITALS: TEMP 99.2
[2020-03-06 12:57] VITALS: BP 147/57
--- NOTE | 2020-03-07 00:41 | DIS ---
DATE OF ADMISSION: 03/01/2020 DATE OF DISCHARGE: 03/06/2020 DISCHARGE DIAGNOSES: 1. Intracerebral hemorrhage of the left frontal and hemispheric distribution with vasogenic edema and midline shift. 2. Chronic anticoagulation. 3. Malignant hypertension. 4. Acute seizure secondary to #1. 5. Atrial flutter with variable rate. 6. Coronary artery disease. CONSULTATIONS: 1. Dr. Peterson with Pulmonology Critical Care Service. 2. Dr. Underwood with Neurology Service. 3. Dr. Pina with Neurosurgical Service. PERTINENT LABORATORY AND X-RAY FINDINGS: Potassium ranged between 3.1 to 4.2. Total cholesterol 169, triglycerides 57, HDL 56, LDL 102. CBC showed a white blood cell count ranged between 9.6 to 15.2, hemoglobin ranged between 12.[address] of the brain without contrast dated 03/01/2020 showed intraparenchymal subdural and subarachnoid hemorrhage with midline shift to the right. Portable chest x-ray dated 03/02/2020 showed chronic lung changes without acute infiltrate. EEG dated 03/01/2020 showed interictal expression of partial epilepsy in the setting of moderate generalized nonspecific cerebral dysfunction. No seizure activity captured during the recording. 2D transthoracic echocardiogram dated 03/03/2020 showed ejection fraction of 60% to 65%. Mild mitral and [id number] tricuspid regurgitation. HOSPITAL COURSE: The patient was initially admitted to the Critical Care Unit after presenting with altered mentation associated with acute intracranial hemorrhage. The patient apparently sustained a fall during a seizure episode, presenting to the emergency room, undergoing CT imaging confirming intraparenchymal hemorrhage. The patient was given IV Keppra and Ativan in the emergency room and evaluated by the Neurosurgical team. The patient was initiated on IV dexamethasone and mannitol as well as given Kcentra due to chronic Eliquis therapy. The patient was also noted with associated malignant hypertension, placed on a Cardene infusion, and monitored in the critical care unit. The patient was not deemed an appropriate candidate for any acute surgical intervention and neurology consultation was also obtained with recommendations for supportive management. The patient received IV mannitol in addition to the dexamethasone to mitigate vasogenic cerebral edema. The patient's mental status did not improve with these interventions, as the patient remained lethargic and minimally responsive to any stimulus or any tactile or verbal stimulus. Due to the profound intracerebral hemorrhage and vasogenic edema, discussions were had with the family regarding poor prognosis. This was confirmed by the neurology and neurosurgical team, relayed to the patient's family. Due to the patient's lack of response to aggressive intervention and poor prognostic indicators, the family decided to pursue hospice care. I have discussed coordination of hospice care with the family, who agreed to proceed with inpatient hospice care. I have examined the patient at the time of discharge with family at the bedside. DISCHARGE MEDICATIONS: Reviewed and negative. FOLLOWUP: The patient will follow up with [facility]. CONDITION AT DISCHARGE: Guarded. ACTIVITY: Bed bound. DIET: N.p.o. status. CODE STATUS: Do not attempt resuscitation. DISPOSITION: Discharged to inpatient hospice care with [facility] 03/06/2020. Total time preparing and coordinating discharge, 35 minutes. Job ID: [id number]
--- NOTE | 2020-03-08 09:52 | PQF ---
CLINICAL DOCUMENTATION CLARIFICATION FORM: Dear : Cedric Torres Date / Time: 03/08/2020 09:51 Please exercise your independent, professional judgment in responding to the clarification form. Clinical indicators are provided on the bottom of this form for your review Based on your clinical judgment, can you please clarify the etiology of patients intracerebral hemorrhage? Please check appropriate box(es): [ x ] Traumatic [ ] Non-traumatic [ ] Other diagnosis [ ] Unable to determine Physician Signature: Date/Time: For continuity of documentation, please document condition throughout progress notes and discharge summary. Thank You. To be completed by CDI/Coding staff for physician review: Present Clinical Indicators - Signs / Symptoms / Labs Results and Location in Medical Record [x] likely traumatic,multi origin intracerebral hemorrhage including traumatic subarachnoid and small subdural Consult 03/01 [x] CT of brain: worsening intraparenchymal subdura; and subarachnoid blood Collected 03/01 [x] She is reported to have fallen during the seizure episode HP 03/01 [x] non traumatic intracranial hemorrhage HP 03/01 [x] non traumatic intracerebral hemorrhage HP 03/01 [x] appeared to be traumatic SAH and a left frontal contusion PN 03/02 [x] large left hemispheric hemorrhage in the setting of Eliquis anticoagulation PN 03/03 Present Risk Factors Results and Location in Medical Record [x] 84 years old female HP 03/01 [x] CAD HP 03/01 [x] HTN HP 03/01 [x] s/p fall HP 03/01 [x] Chronic anticoagulation Advance care planning 03/02 Present Treatments Results and Location in Medical Record [x] CT of brain Collected 03/01 [x] Consult Neurology Consult 03/01 [x] Mannitol 62.5mg IV MAR 03/01 CDS/Juvenile Counselor Signature: Jaciel Doyle Phone #: ext [phone] Date/Time: 03/08/20 09:51 This is a permanent part of the Medical Record [facility]
== END 2020-03-06 17:51 | disposition hospice, inpatient (51) | DRG 85 ==
LOC: CCU 16:26 → UNDOADMIN 16:28 → T4-A 16:28 → 2SE 03-04 15:09
PROVIDERS: ADMIT Student in an Organized Health Care Education/Training Program; ATTEND Student in an Organized Health Care Education/Training Program
DX: S06.6X0A Traumatic subarachnoid hemorrhage without loss of consciousness, initial encounter (principal); G93.6 Cerebral edema; R47.01 Aphasia; G81.91 Hemiplegia, unspecified affecting right dominant side; I47.1 Supraventricular tachycardia; I16.1 Hypertensive emergency; I48.92 Unspecified atrial flutter; I25.10 Atherosclerotic heart disease of native coronary artery without angina pectoris; I10 Essential (primary) hypertension; I44.0 Atrioventricular block, first degree; Z51.5 Encounter for palliative care; W18.30XA Fall on same level, unspecified, initial encounter; D72.829 Elevated white blood cell count, unspecified; I48.91 Unspecified atrial fibrillation; E87.6 Hypokalemia; I08.1 Rheumatic disorders of both mitral and tricuspid valves; Z79.01 Long term (current) use of anticoagulants; S06.5X0A Traumatic subdural hemorrhage without loss of consciousness, initial encounter; R40.2112 Coma scale, eyes open, never, at arrival to emergency department; R40.2352 Coma scale, best motor response, localizes pain, at arrival to emergency department; R40.2222 Coma scale, best verbal response, incomprehensible words, at arrival to emergency department
CPT/HCPCS: 36415; 36416; 70450; 71045; 80048; 80061; 81001; 83930; 85025; 85027; 93306; 95712; 95816; 95819; 95957; J0282; J1953; J2150; J3480; J7050; J7070; S0028

== ENCOUNTER 2020-03-06 17:58 | Inpatient (IN) | payer OTHER ==
[2020-03-06 18:10] VITALS: BMI 25.6
[2020-03-06] MEDS ORDERED: Bisacodyl 10 MG SUPP PR PRN (18:59)
[2020-03-06] MEDS ORDERED: Morphine 2 MG/ML VIAL SLOW IVP PRN (18:59)
[2020-03-06] MEDS ORDERED: Scopolamine 1.5 mg/72 hour Patch TOP PRN (19:00)
[2020-03-06] MEDS ORDERED: Lorazepam 2 MG/ML VIAL SLOW IVP PRN (19:00)
[2020-03-06] MEDS ORDERED: Ondansetron PF 4 MG/2 ML Vial IVP PRN (19:00)
[2020-03-06] MEDS: Morphine 2 MG/ML VIAL SLOW IVP SCH (20:10)
[2020-03-06] MEDS: Lorazepam 2 MG/ML VIAL SLOW IVP SCH (20:10)
[2020-03-07] MEDS: Lorazepam 2 MG/ML VIAL SLOW IVP SCH ×6 (01:37→23:05)
[2020-03-07] MEDS: Morphine 2 MG/ML VIAL SLOW IVP SCH ×6 (01:38→22:06)
[2020-03-07] MEDS ORDERED: Acetaminophen 650 MG Suppository PR PRN (21:11)
[2020-03-08] MEDS: Lorazepam 2 MG/ML VIAL SLOW IVP SCH ×6 (02:19→20:32)
[2020-03-08] MEDS: Morphine 2 MG/ML VIAL SLOW IVP SCH ×6 (02:19→20:32)
[2020-03-09] MEDS: Lorazepam 2 MG/ML VIAL SLOW IVP SCH ×6 (00:30→21:26)
[2020-03-09] MEDS: Morphine 2 MG/ML VIAL SLOW IVP SCH ×6 (00:30→21:26)
[2020-03-10] MEDS: Morphine 2 MG/ML VIAL SLOW IVP SCH ×6 (01:29→21:14)
[2020-03-10] MEDS: Lorazepam 2 MG/ML VIAL SLOW IVP SCH ×6 (01:29→21:14)
[2020-03-11] MEDS: Lorazepam 2 MG/ML VIAL SLOW IVP SCH ×6 (01:23→21:26)
[2020-03-11] MEDS: Morphine 2 MG/ML VIAL SLOW IVP SCH ×6 (01:23→21:25)
[2020-03-12] MEDS: Lorazepam 2 MG/ML VIAL SLOW IVP SCH ×3 (01:48→10:07)
[2020-03-12] MEDS: Morphine 2 MG/ML VIAL SLOW IVP SCH ×3 (01:48→10:07)
[2020-03-12 08:07] VITALS: BP 113/79; TEMP 102
[2020-03-12] MEDS ORDERED: Morphine 2 MG/ML VIAL SLOW IVP PRN (12:49)
[2020-03-12] MEDS ORDERED: Lorazepam 2 MG/ML VIAL SLOW IVP SCH (13:00)
[2020-03-12] MEDS ORDERED: Morphine 2 MG/ML VIAL SLOW IVP SCH (15:00)
== END 2020-03-12 13:35 | disposition expired | DRG 951 ==
LOC: 2SE 17:58 → T4-B 03-07 15:20
PROVIDERS: ADMIT Family Medicine; ATTEND Family Medicine
DX: Z51.5 Encounter for palliative care (principal); S06.6X9A Traumatic subarachnoid hemorrhage with loss of consciousness of unspecified duration, initial encounter; I48.92 Unspecified atrial flutter; Z66 Do not resuscitate; I25.10 Atherosclerotic heart disease of native coronary artery without angina pectoris; I10 Essential (primary) hypertension; Z79.899 Other long term (current) drug therapy; Z79.01 Long term (current) use of anticoagulants
CPT/HCPCS: 36416; J2060; J2270